=== PATIENT | female | born 1950 | race Asian ===

== ENCOUNTER → 2016-10-03 | Outpatient (CLI) | payer OTHER ==
[~2016-10-03] MED LIST: ASPIR-LOW81 MG PO; ASPIRIN E.C. 8181 MG PO; CALTRATE-600 W600 MG PO; FISH OIL 1000MG1 CAP PO; FOLIC ACID 11 MG/TA1 PO; FOLIC ACID PO; GLUCOPHAGE500 MG/TAB PO; GLUCOSAMINE & C1 CA1 PO; LEXAPRO 5MG5 MG PO; LIPITOR20 MG PO; MICARDIS HCT 121 TA1 PO; MICARDIS HCT PO; MVI PO; NORVASC 5MG5 MG/TAB PO; PREMARIN .3MG0.3 MG PO; TRICOR145 MG PO; VITAMIN B12 PO; ZOCOR 20MG20 MG PO
== END ==
LOC: COL.RAD 10:33
DX: D48.7 Neoplasm of uncertain behavior of other specified sites (principal); R06.02 Shortness of breath; D64.89 Other specified anemias
CPT/HCPCS: Q9967

== ENCOUNTER → 2016-10-12 | Outpatient (CLI) | payer OTHER ==
[~2016-10-12] VITALS: Ht 157.5 cm; Wt 61.9 kg
[2016-10-12 10:17] VITALS: BP 86/58; PULSE 84
== END ==
LOC: COL.RAD 09:39
DX: R59.0 Localized enlarged lymph nodes (principal)
CPT/HCPCS: 25757

== ENCOUNTER → 2016-10-25 | Outpatient (CLI) | payer OTHER | LOC: COL.VAS 07:48 | DX: Z01.818 Encounter for other preprocedural examination (principal); C83.38 Diffuse large B-cell lymphoma, lymph nodes of multiple sites ==

== ENCOUNTER 2017-09-20 09:27 | Outpatient (CLI) | payer MEDICARE, OTHER ==
[~2017-09-20] VITALS: Ht 157.5 cm; Wt 60.9 kg
[2017-09-20] VITALS (9 sets, daily range): BP systolic 93–132; BP diastolic 59–75; PULSE 57–88
[~2017-09-20 09:27] MED LIST changes: +MICARDIS80 MG PO; +MULTIPLE VITAMI1 CAP PO
[2017-09-20 11:25] LABS: GLUCOSE,CSF 45 mg/dL (40-70); TOTAL PROTEIN,CSF 68 mg/dL (15-45)
[2017-09-20 12:52] LABS: CSF APPEARANCE CLEAR; CSF COLOR COLORLESS
[2017-09-20 12:53] LABS: CSF RBC 3 /mm3 (0-0)
[2017-09-20 13:25] LABS: CSF MONONUCLEAR 97 % (70-100); CSF POLYMORPHONUCLEAR 3 % (0-6)
== END 2017-09-20 13:15 | disposition home health service (06) ==
LOC: COL.RAD 09:27
PROVIDERS: Internal Medicine
DX: C83.38 Diffuse large B-cell lymphoma, lymph nodes of multiple sites (principal)

== ENCOUNTER → 2018-02-18 | Outpatient (CLI) | payer MEDICARE, OTHER ==
[~2018-02-18] MED LIST changes: +IMBRUVICA560 MG PO; +MICARDIS40 MG PO
== END ==
LOC: COL.PUL 07:36
DX: Z01.811 Encounter for preprocedural respiratory examination (principal); C83.38 Diffuse large B-cell lymphoma, lymph nodes of multiple sites; Z87.891 Personal history of nicotine dependence

== ENCOUNTER → 2018-02-24 | Outpatient (CLI) | payer MEDICARE, OTHER ==
[~2018-02-24] VITALS: Ht 157.5 cm; Wt 66.9 kg
[2018-02-24 11:09] VITALS: BP 132/71; PULSE 66
[2018-02-24 11:13] VITALS: BP 132/71; PULSE 68
[2018-02-24 11:32] LABS: CSF MONONUCLEAR 67 % (70-100); CSF POLYMORPHONUCLEAR 33 % (0-6); CSF RBC 0 /mm3 (0-0)
[2018-02-24 11:40] LABS: CSF COLOR COLORLESS
[2018-02-24 11:42] LABS: CSF APPEARANCE HAZY; GLUCOSE,CSF 48 mg/dL (40-70); TOTAL PROTEIN,CSF 74 mg/dL (15-45)
[2018-02-24 12:15] VITALS: BP 119/70; PULSE 63
== END ==
LOC: COL.RAD 02-20 09:15
PROVIDERS: Internal Medicine
DX: Z01.818 Encounter for other preprocedural examination (principal); C85.90 Non-Hodgkin lymphoma, unspecified, unspecified site

== ENCOUNTER → 2018-02-26 | Outpatient (CLI) | payer MEDICARE, OTHER | LOC: COL.CARD 09:41 | DX: Z01.810 Encounter for preprocedural cardiovascular examination (principal); C83.38 Diffuse large B-cell lymphoma, lymph nodes of multiple sites; I25.6 Silent myocardial ischemia ==

== ENCOUNTER 2018-03-31 07:24 | Day surgery (SDC) | payer MEDICARE, OTHER ==
[2018-03-31] VITALS (10 sets, daily range): BP systolic 105–148; BP diastolic 48–82; PULSE 61–78; TEMP 97.1
[~2018-03-31] VITALS: Ht 157.5 cm; Wt 66.8 kg
[2018-03-31 09:14] LABS: HEMATOCRIT 37.9 % (37.0-47.0); MEAN CELL VOLUME 88 fl (80.0-100.0); MEAN CORPUSCULAR HEMOGLOBIN 30 pg (27.0-31.0); MEAN CORPUSCULAR HGB CONC 34 g/dl (33.0-37.0); MEAN PLATELET VOLUME 10.9 fl (7.4-10.4); PLATELET COUNT 183 K/mm3 (130-400); RED BLOOD COUNT 4.29 M/mm3 (4.10-5.30); REDCELL DISTRIBUTION WIDTH-CV 12.8 % (11.5-14.5)
[2018-03-31 09:19] LABS: INR 0.9 (0.8-3.0); PROTHROMBIN TIME 9.8 SECONDS (9.7-12.8)
[2018-03-31 09:21] LABS: CALCIUM 9.4 mg/dL (8.4-10.2); CREATININE, serum 0.84 mg/dL (0.52-1.25); POTASSIUM 3.8 mmol/L (3.4-5.0)
== END 2018-03-31 14:00 | disposition home or self-care (01) ==
LOC: COL.CAR 07:24
PROVIDERS: Internal Medicine Cardiovascular Disease
DX: I25.10 Atherosclerotic heart disease of native coronary artery without angina pectoris (principal); R94.39 Abnormal result of other cardiovascular function study; I08.1 Rheumatic disorders of both mitral and tricuspid valves; I12.9 Hypertensive chronic kidney disease with stage 1 through stage 4 chronic kidney disease, or unspecified chronic kidney disease; N18.9 Chronic kidney disease, unspecified; E78.2 Mixed hyperlipidemia; Z87.891 Personal history of nicotine dependence; Z85.72 Personal history of non-Hodgkin lymphomas; Z82.49 Family history of ischemic heart disease and other diseases of the circulatory system; Z82.3 Family history of stroke
CPT/HCPCS: C1769; C1894; J1644; J2250; J3010; Q9967

== ENCOUNTER → 2018-08-29 | Outpatient (CLI) | payer MEDICARE, OTHER | LOC: MC.RAD 08-19 08:40 | DX: Z12.31 Encounter for screening mammogram for malignant neoplasm of breast (principal) ==

== ENCOUNTER → 2019-09-04 | Outpatient (CLI) | payer MEDICARE, OTHER | LOC: MC.RAD 07:51 | DX: Z12.31 Encounter for screening mammogram for malignant neoplasm of breast (principal) ==

== ENCOUNTER → 2020-09-07 | Outpatient (CLI) | payer MEDICARE, OTHER | LOC: MC.RAD 08:57 | DX: Z12.31 Encounter for screening mammogram for malignant neoplasm of breast (principal) ==

== ENCOUNTER → 2021-11-01 | Outpatient (CLI) | payer MEDICARE, OTHER | LOC: MC.RAD 13:32 | DX: Z12.31 Encounter for screening mammogram for malignant neoplasm of breast (principal) ==

== ENCOUNTER → 2021-11-01 | Outpatient (CLI) | payer MEDICARE, OTHER | LOC: COL.RAD 06:55 | DX: I67.82 Cerebral ischemia (principal); C85.90 Non-Hodgkin lymphoma, unspecified, unspecified site | CPT/HCPCS: A9575 ==

== ENCOUNTER → 2023-08-15 | Outpatient (CLI) | payer MEDICARE, OTHER | LOC: CANSCHCLI → COL.RAD 07:17 | DX: C83.38 Diffuse large B-cell lymphoma, lymph nodes of multiple sites (principal) | CPT/HCPCS: A9575; Q9967 ==